=== PATIENT | male | born 1945 | race Caucasian/White ===

== ENCOUNTER 2020-11-22 22:28 | Observation (INO) | payer MEDICARE, OTHER ==
[~2020-11-22] VITALS: Ht 175.3 cm; Wt 118.0 kg
--- NOTE | 2020-11-22 22:59 | NUR ---
PT CAME IN AFTER TAKING A NAP AND SAYS "I WOKE UP AND I WAS SUPER CONFUSED ABOUT WHERE I WAS OR WHAT WAS GOING ON AND THAT HAS NEVER HAPPENED TO ME BEFORE. AND NOW I HAVE A POUNDING HEADACHE ON EITHER SIDE OF MY HEAD". PT HAS HX OF SUBDURAL HEMATOMA - DENIES TRAUMA. PT ALSO HAS HX OF COPD AND USES HOME O2 FROM TIME TO TIME. PT RESTING IN [facility]. EKG COMPLETE. CONNECTED TO MONITORING EQUIPMENT. MD IS BEDSIDE FOR ASSESSMENT
--- NOTE | 2020-11-22 23:19 | NUR ---
PIV ACCESS INITIATED AND LABS DRAWN. LABS TUBED TO LAB AT THIS TIME. PT TO CT VIA FELECIA AT THIS TIME.
[2020-11-22 23:26] LABS: BASOPHILS % (AUTO) 1 % (0-1); EOSINOPHILS % (AUTO) 0 % (1-7); LYMPHOCYTES % (AUTO) 17 % (22-44); MEAN CORPUSCULAR HEMOGLOBIN 32.4 pg (27.5-34.5); MEAN CORPUSCULAR HGB CONC 34.1 g/dL (33.2-36.2); MEAN PLATELET VOLUME 8.6 fL (7.4-10.4); MONOCYTES % (AUTO) 7 % (2-9); NEUTROPHILS % (AUTO) 75 % (42-75); PLATELET COUNT 150 x10^3/uL (130-400); RED BLOOD COUNT 4.55 x10^6/uL (4.38-5.82); RED CELL DISTRIBUTION WIDTH 13.1 % (9.4-14.8)
[2020-11-22 23:38] LABS: ALBUMIN 3.6 g/dL (3.4-5.0); ANION GAP 8 mmol/L (5-15); CHLORIDE 105 mmol/L (98-107); CREATININE 0.74 mg/dL (0.7-1.3)
[2020-11-22 23:41] LABS: TROPONIN I < 0.015 ng/mL (0.000-0.045)
[2020-11-22 23:42] LABS: INTERNATIONAL NORMALIZED RATIO 1.01 (0.93-1.1); PROTHROMBIN TIME 10.8 Seconds (9.6-11.5)
[2020-11-22] MEDS ORDERED: OMNIPAQUE 350 MG/ML, 100ML BOTTLE ONE (23:47)
--- NOTE | 2020-11-23 01:01 | NUR ---
pt resting comfortably in gurney with nadn and call light within reach. pt vss and updated in emr. pt denies any needs at this time.
[2020-11-23 01:48] LABS: MICROSCOPIC NOT IND
--- NOTE | 2020-11-23 01:59 | NUR ---
REPORT OF PT TO ANDREW CINTRON. ALL QUESTIONS ANSWERED. TECH PAGED FOR TRANSPORT OF PT TO FLOOR.
[2020-11-23] MEDS ORDERED: ENOXAPARIN 40 MG/0.4 ML SQ SCH (02:00)
[2020-11-23] MEDS ORDERED: morphine SULFATE 10 MG/ML, 1ML IVPush PRN (02:00)
[2020-11-23] MEDS ORDERED: ACETAMINOPHEN 325 MG TABLET PO PRN (02:00)
[2020-11-23] MEDS ORDERED: OXYcodone/APAP 5/325MG TABLET PO PRN (02:00)
--- NOTE | 2020-11-23 02:10 | NUR ---
REPORT OF PT TO ANDREW PAINTING. ALL QUESTIONS ANSWERED.
[2020-11-23 03:03] VITALS: BP 148/67
[2020-11-23 07:25] VITALS: BP 116/71
[2020-11-23 12:13] VITALS: BP 128/76
== END 2020-11-23 14:00 | disposition home or self-care (01) ==
LOC: ED 11-23 00:03 → EDIP 11-23 01:34 → INTOOBSV 11-23 01:34 → 4EST 11-23 02:20
PROVIDERS: ADMIT Student in an Organized Health Care Education/Training Program; ATTEND Family Medicine
DX: R41.82 Altered mental status, unspecified (principal); R41.1 Anterograde amnesia; I25.10 Atherosclerotic heart disease of native coronary artery without angina pectoris; J44.9 Chronic obstructive pulmonary disease, unspecified; G89.29 Other chronic pain; I25.2 Old myocardial infarction; Z79.899 Other long term (current) drug therapy
CPT/HCPCS: 36415; 70450; 70496; 70498; 71045; 80048; 80320; 81003; 82040; 83036; 83880; 84443; 84484; 85025; 85610; 85730; 93005; 96372; 97161; 97165; 97535; 99285; G0378; J1650; Q9967; G0480